=== PATIENT | male | born 1945 | race Hispanic/Latino ===

== ENCOUNTER 2018-03-15 10:07 | Emergency (ER) | payer MEDICARE ==
[2018-03-15 10:10] VITALS: BMI 39.9
--- NOTE | 2018-03-15 10:33 | ED PDOC ---
Arrival/HPI - General Chief Complaint: Abdominal Pain Time Seen by Provider: 03/15/18 10:32 Historian: Patient - History of Present Illness Narrative History of Present Illness (Text): 03/15/18 10:32 Cesar Reynoso is a 72 year old male, whose past medical history includes triple bypass graft, GERD, CAD, asthma, and hypertension, who presents to the Emergency department complaining of left flank pain x 2 days. Patient stated pain is non-radiating, and pain worsen with movement. Patient stated he has a chronic dry cough, but it has been progressively worsen. Patient has been using a new medication for asthma. Patient denies sob, brandt, palpitation, diaphoresis, weakness, syncope, dizziness, fever, urinary symptoms, or abnormal gait. Time/Duration: Other (see hpi) Quality: Aching Context: Home Past Medical History - Provider Review Nursing Documentation Reviewed: Yes - Infectious Disease Hx of Infectious Diseases: None - Cardiac Hx Cardiac Disorders: (Triple bypass) Hx Hypertension: Yes - Pulmonary Hx Asthma: Yes - Neurological Hx Paralysis: No - Endocrine/Metabolic Hx Endocrine Disorders: No - Hematological/Oncological Hx Blood Transfusions: No Hx Blood Transfusion Reaction: No - Musculoskeletal/Rheumatological Hx Arthritis: Yes Hx Falls: No - Gastrointestinal Hx Gastrointestinal Disorders: No - Genitourinary/Gynecological Hx Genitourinary Disorders: No - Psychiatric Hx Emotional Abuse: No Hx Physical Abuse: No Hx Substance Use: No - Surgical History Hx Coronary Artery Bypass Graft: Yes (triple bypass 2009) - Anesthesia Hx Anesthesia: Yes Hx Anesthesia Reactions: No Hx Malignant Hyperthermia: No - Suicidal Assessment Feels Threatened In Home Enviroment: No Family/Social History - Physician Review Nursing Documentation Reviewed: Yes Family/Social History: Other (noncontributory) Smoking Status: Never Smoked Hx Alcohol Use: Yes (drinks on the weekends) Hx Substance Use: No Allergies/Home Meds Allergies/Adverse Reactions: Allergies Penicillins Allergy (Verified 03/15/18 10:51) RASH Home Medications: Home Meds Medication Instructions Recorded Confirmed Atorvastatin Calcium [Lipitor] 40 mg PO DAILY 04/02/15 03/15/18 Hydroxychloroquine Sulfate 400 mg PO QAM 04/02/15 03/15/18 [Plaquenil] Metoprolol Succinate [Toprol Xl] 50 mg PO DAILY 04/02/15 03/15/18 Mometasone/Formoterol [Dulera] 1 mary IH BID 04/02/15 03/15/18 Ranitidine HCl [Zantac 150] 150 mg PO DAILY 04/02/15 03/15/18 Aspirin [Aspirin] 81 mg PO DAILY 04/04/15 03/15/18 Tamsulosin [Flomax] 0.4 mg PO DAILY 05/28/17 03/15/18 Clopidogrel [Plavix] 75 mg PO DAILY 03/15/18 03/15/18 Fluticasone/Umeclidin/Vilanter 1 each IH DAILY 03/15/18 03/15/18 [Trelepamela Ellipta 100-62.5-25] Review of Systems - Review of Systems Constitutional: Normal. absent: Fatigue, Weight Change, Fevers, Night Sweats Eyes: Normal ENT: Normal Respiratory: Cough (chronic dry cough). absent: SOB, Sputum, Wheezing Cardiovascular: Normal. absent: Chest Pain, Palpitations, Edema Gastrointestinal: Abdominal Pain (left flank pain). absent: Nausea, Vomiting Genitourinary Male: Normal. absent: Dysuria, Frequency, Hematuria Musculoskeletal: Back Pain (left lower back pain). absent: Arthralgias, Neck Pain, Joint Swelling Skin: Normal. absent: Rash Neurological: Normal. absent: Headache, Dizziness, Focal Weakness, Gait Changes , Speech Changes Endocrine: Normal Hemo/Lymphatic: Normal Psychiatric: Normal Physical Exam Vital Signs Temp Pulse Resp BP Pulse Ox 03/15/18 10:35 98.6 F 60 19 142/70 100 Temperature: Afebrile Blood Pressure: Normal Pulse: Regular Respiratory Rate: Normal Appearance: Positive for: Well-Appearing, Non-Toxic, Comfortable Pain Distress: None Mental Status: Positive for: Alert and Oriented X 3 - Systems Exam Head: Present: Atraumatic, Normocephalic Pupils: Present: PERRL Extroacular Muscles: Present: EOMI Conjunctiva: Present: Normal Mouth: Present: Moist Mucous Membranes Neck: Present: Normal Range of Motion Respiratory/Chest: Present: Clear to Auscultation, Good Air Exchange, Tender to Palpation ((+) left flank pain is 100 % reproducible on palpation located left posteriorlower rib area. No erythema, rash or ecchymosis.). No: Respiratory Distress, Accessory Muscle Use, Wheezes, Decreased Breath Sounds, Rales, Retracting, Rhonchi Cardiovascular: Present: Regular Rate and Rhythm, Normal S1, S2. No: Murmurs Abdomen: No: Tenderness, Distention, Peritoneal Signs, Rebound, Guarding Back: Present: Normal Inspection, Paraspinal Tenderness (mild left paravertebral tenderness). No: CVA Tenderness, Midline Tenderness Upper Extremity: Present: Normal Inspection, Neurovascularly Intact. No: Cyanosis, Edema Lower Extremity: Present: Normal Inspection, NORMAL PULSES, Normal ROM, Neurovascularly Intact. No: Edema Neurological: Present: GCS=15, CN II-XII Intact, Speech Normal, Motor Func Grossly Intact, Normal Sensory Function, Normal Cerebellar Funct, Gait Normal, Memory Normal Skin: Present: Warm, Dry, Normal Color. No: Rashes Psychiatric: Present: Alert, Oriented x 3, Normal Insight, Normal Concentration Medical Decision Making ED Course and Treatment: 03/15/18 13:29 This 72 yo male with pmh CABG, presents to this ED c/o left lower posterior chest wall pain x 2 days, which worsen with movement, deep inspiration, and palpation and pain improves by remaining still. Patient noted he has a chronic cough. Physical exam was unremarkable, except for tenderness on palpation left flank area over lower lateral ribs. No skin rash. Pain is 100 % reproducible. Labs, cxr, ekg, ct scan was unremarkable. Normal troponin. Lungs CTA b/l. No abdominal tenderness. I told patient that sometimes chronic cough can cause chest wall pain, and chronic cause sometime is caused by GERD. I recommended Carafate, Lidoderm patch for pain, and Tylenol with Codeine. Patient was recommended to avoid driving or operating machinery for at least 12 hours if he takes Tylenol with codeine. I recommended patient to f/u Dr. Morrison tomorrow, and to see GI doctor . 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 To return to emergency if symptoms returns. Re-evaluation Time: 13:35 Reassessment Condition: Re-examined, Improved - Lab Interpretations Lab Results: 03/15/18 11:00 03/15/18 11:00 Lab Results 03/15/18 11:00: Urine Color Yellow, Urine Appearance Clear, Urine pH 6.0, Ur Specific [place] 1.020, Urine Protein Negative, Urine Glucose (UA) Negative, Urine Ketones Negative, Urine Blood Negative, Urine Nitrate Negative, Urine Bilirubin Negative, Urine Urobilinogen 0.2, Ur Leukocyte Esterase Negative 03/15/18 11:00: Sodium 141, Potassium 3.8, Chloride 107, Carbon Dioxide 23, Anion Gap 15, BUN 18, Creatinine 0.9, Est GFR ( Amer) > 60, Est GFR (Non- Af Amer) > 60, Random Glucose 120 H, Calcium 9.6, Magnesium 1.7, Total Bilirubin 1.0, AST 27, ALT 34, Alkaline Phosphatase 67, Lactate Dehydrogenase 444, Total Creatine Kinase 104, Troponin I < 0.01 D, Total Protein 6.6, Albumin 3.8, Globulin 2.8, Albumin/Globulin Ratio 1.4, Lipase 217 03/15/18 11:00: WBC 7.5, RBC 4.47, Hgb 14.1, Hct 40.5 L, MCV 90.6 D, MCH 31.5, MCHC 34.8, RDW 13.3, Plt Count 198, MPV 9.8, Gran % 72.3 H, Lymph % (Auto) 15.5 L, [place] % (Auto) 6.5 H, Eos % (Auto) 5.3 H, Baso % (Auto) 0.4, Gran # 5.41, Lymph # (Auto) 1.2, [place] # (Auto) 0.5, Eos # (Auto) 0.4, Baso # (Auto) 0.03 I have reviewed the lab results: Yes Interpretation: No clinic. lab abnormalty - RAD Interpretation Narrative RAD Interpretations (Text): 03/15/18 12:23 Date of service: LUNGS: No active pulmonary disease. PLEURA: No significant pleural effusion identified, no pneumothorax apparent. CARDIOVASCULAR: Status post CABG. Normal heart size. No congestive change. OSSEOUS STRUCTURES: No significant abnormalities. VISUALIZED UPPER ABDOMEN: Normal. OTHER FINDINGS: None. IMPRESSION: No active disease. 03/15/18 12:24 Date of service: 03/15/2018 PROCEDURE: CT Abdomen and Pelvis without intravenous contrast FINDINGS: LOWER THORAX: Unremarkable. LIVER: Unremarkable. No gross lesion or ductal dilatation. GALLBLADDER AND BILE DUCTS: Cholelithiasis. No mural thickening or pericholecystic fluid. PANCREAS: Unremarkable. No gross lesion or ductal dilatation. SPLEEN: Unremarkable. ADRENALS: Unremarkable. No mass. KIDNEYS AND URETERS: Multiple small bilateral nonobstructing renal calculi. Largest right kidney in upper pole 4 mm. Largest in left kidney interpolar, 5 mm. There has been some increase in size and number of these calcifications when compared to the prior examination. There is no renal mass. There is no hydronephrosis. VASCULATURE: Unremarkable. No aortic aneurysm. BOWEL: Unremarkable. No obstruction. No gross mural thickening. APPENDIX: Unremarkable. Normal appendix. PERITONEUM: Unremarkable. No free fluid. No free air. LYMPH NODES: Unremarkable. No enlarged lymph nodes. BLADDER: Unremarkable. REPRODUCTIVE: Normal prostate BONES: Grade 1 anterolisthesis at L5-S1 with bilateral L5 spondylolysis. No evidence of vertebral fracture. OTHER FINDINGS: None. IMPRESSION: Bilateral small nonobstructing renal calculi. No evidence of urinary tract obstruction or ureteral calculus. Cholelithiasis without evidence of cholecystitis. Anterolisthesis and spondylolysis at L5-S1. Radiology Orders: 03/15/18 11:06 CHEST PORTABLE [RAD] Stat 03/15/18 11:10 ABDOMEN & PELVIS [ABD & PELVIS W/O PO OR IV CONT] [CT] Stat - EKG Interpretation Interpreted by ED Physician: Yes (Sinus bradycardia @[address] changes) Type: 12 lead EKG - Medication Orders Current Medication Orders: Discontinued Medications Morphine Sulfate (Morphine) 2 mg IVP STAT STA Stop: 03/15/18 11:25 Last Admin: 03/15/18 11:32 Dose: 2 mg MAR Pain Assessment Document 03/15/18 11:32 GMD (Rec: 03/15/18 11:32 GMD [id number]) Pain Reassessment Is this a pain reassessment? No Presence of Pain Presence of Pain Yes IVP Administration Document 03/15/18 11:32 GMD (Rec: 03/15/18 11:32 GMD [id number]) Charges for Administration # of IVP Administrations 1 Ondansetron HCl (Zofran Inj) 4 mg IVP STAT STA Stop: 03/15/18 11:25 Last Admin: 03/15/18 11:32 Dose: 4 mg IVP Administration Document 03/15/18 11:32 GMD (Rec: 03/15/18 11:32 GMD [id number]) Charges for Administration # of IVP Administrations 1 Disposition/Present on Arrival - Present on Arrival Any Indicators Present on Arrival: No History of DVT/PE: No History of Uncontrolled Diabetes: No Urinary Catheter: No History of Decub. Ulcer: No History Surgical Site Infection Following: None - Disposition Have Diagnosis and Disposition been Completed?: Yes Diagnosis: Chest wall pain, History of chronic cough Disposition: HOME/ ROUTINE Disposition Time: 13:37 Patient Plan: Discharge Condition: GOOD Discharge Instructions (ExitCare): Chest Pain That Is Not Caused by the Heart ( [place]) Additional Instructions: Call Dr. Morrison for follow up visit in 1-2 days. Take medication as instructed. Return to emergency if pain worsen, or if new symptoms arise. Do not drive or operate machinery for at least 12 hours if you take Tylenol with codeine. Take OTC Zantac in the morning. Prescriptions: Acetaminophen with Codeine [Tylenol with Codeine #3 Tablet] 1 each PO Q6H PRN # 10 tablet PRN Reason: Pain, Severe (8-10) Lidocaine 5% [Lidoderm] 1 each TP DAILY PRN #30 patch PRN Reason: Pain, Severe (8-10) Sucralfate [Carafate] 1 gm PO DAILY #30 tab Referrals: Torsten Morrison MD [Primary Care Provider] - Follow up with primary Forms: [employer] (Macedonian)
[2018-03-15 11:13] LABS: BASO # 0.03 K/mm3 (0.0-2.0); BASO % 0.4 % (0.0-3.0); EOS # 0.4 (0.0-0.7); EOS % 5.3 % (1.5-5.0); GRAN # 5.41 (1.4-6.5); GRAN % 72.3 % (50.0-68.0); HEMOGLOBIN 14.1 g/dL (14.0-18.0); LYMPH # 1.2 (1.2-3.4); LYMPH % 15.5 % (22.0-35.0); MEAN CELL VOLUME 90.6 fl (80.0-105.0); MEAN CORPUSCULAR HEMOGLOBIN 31.5 pg (25.0-35.0); MEAN CORPUSCULAR HGB CONC 34.8 g/dl (31.0-37.0); MEAN PLATELET VOLUME 9.8 fl (7.0-11.0); MONO # 0.5 (0.1-0.6); MONO % 6.5 % (1.0-6.0); RBC 4.47 10^6/uL (3.5-6.1); RED CELL DISTRIBUTION WIDTH 13.3 % (11.5-14.5); URINE BILIRUBIN NEGATIVE (NEGATIVE); URINE BLOOD NEGATIVE (NEGATIVE); URINE GLUCOSE (UA) NEGATIVE (NEGATIVE); URINE LEUKOCYTE ESTERASE NEGATIVE Leu/uL (NEGATIVE); URINE PROTEIN NEGATIVE mg/dL (<30 mg/dL); URINE UROBILINOGEN 0.2 E.U./dL (<1 E.U./dL); WHITE BLOOD COUNT 7.5 10^3/ul (4.5-11.0)
[2018-03-15 11:19] LABS: URINE APPEARANCE CLEAR (CLEAR); URINE COLOR YELLOW (YELLOW)
[2018-03-15 11:23] LABS: ALB/GLOB RATIO 1.4 (1.1-1.8); ALBUMIN 3.8 g/dL (3.0-4.8); ALT/SGPT 34 U/L (7-56); AST/SGOT 27 U/L (17-59); BLOOD UREA NITROGEN 18 mg/dL (7-21); CALCIUM 9.6 mg/dL (8.4-10.5); GFR AFRICAN-AMERICAN > 60; GFR NON-AFRICAN AMERICAN > 60; LIPASE 217 U/L (23-300)
[2018-03-15] MEDS ORDERED: Morphine 2 mg/ml ISec IVP STA (11:24)
--- NOTE | 2018-03-15 11:32 | RAD ---
Date of service: 03/15/2018 HISTORY: left flank pain COMPARISON: 05/29/2017 FINDINGS: LUNGS: No active pulmonary disease. PLEURA: No significant pleural effusion identified, no pneumothorax apparent. CARDIOVASCULAR: Status post CABG. Normal heart size. No congestive change. OSSEOUS STRUCTURES: No significant abnormalities. VISUALIZED UPPER ABDOMEN: Normal. OTHER FINDINGS: None. IMPRESSION: No active disease.
[2018-03-15 11:34] LABS: TROPONIN I < 0.01 ng/mL
--- NOTE | 2018-03-15 12:05 | CT ---
Date of service: 03/15/2018 PROCEDURE: CT Abdomen and Pelvis without intravenous contrast HISTORY: left flank pain COMPARISON: 11/05/2015 TECHNIQUE: Without contrast.. Contrast dose: 0 Radiation dose: Total exam DLP = 1442.05 mGy-cm. This CT exam was performed using one or more of the following dose reduction techniques: Automated exposure control, adjustment of the mA and/or kV according to patient size, and/or use of iterative reconstruction technique. FINDINGS: LOWER THORAX: Unremarkable. LIVER: Unremarkable. No gross lesion or ductal dilatation. GALLBLADDER AND BILE DUCTS: Cholelithiasis. No mural thickening or pericholecystic fluid. PANCREAS: Unremarkable. No gross lesion or ductal dilatation. SPLEEN: Unremarkable. ADRENALS: Unremarkable. No mass. KIDNEYS AND URETERS: Multiple small bilateral nonobstructing renal calculi. Largest right kidney in upper pole 4 mm. Largest in left kidney interpolar, 5 mm. There has been some increase in size and number of these calcifications when compared to the prior examination. There is no renal mass. There is no hydronephrosis. VASCULATURE: Unremarkable. No aortic aneurysm. BOWEL: Unremarkable. No obstruction. No gross mural thickening. APPENDIX: Unremarkable. Normal appendix. PERITONEUM: Unremarkable. No free fluid. No free air. LYMPH NODES: Unremarkable. No enlarged lymph nodes. BLADDER: Unremarkable. REPRODUCTIVE: Normal prostate BONES: Grade 1 anterolisthesis at L5-S1 with bilateral L5 spondylolysis. No evidence of vertebral fracture. OTHER FINDINGS: None. IMPRESSION: Bilateral small nonobstructing renal calculi. No evidence of urinary tract obstruction or ureteral calculus. Cholelithiasis without evidence of cholecystitis. Anterolisthesis and spondylolysis at L5-S1.
[2018-03-15 13:41] VITALS: BP 127/82; PULSE 54; RESP 18; O2SAT 98
[2018-03-15 13:52] VITALS: TEMP 98.2
--- NOTE | 2018-03-15 21:02 | CARD ---
APPROVED REPORT Date of service: 03/15/2018 EKG Measurement Heart [id number] CT 150P17 [id number] <Conclusion> Sinus bradycardia Inferior infarct, age undetermined Abnormal ECG
== END 2018-03-15 13:52 | disposition home or self-care (01) ==
LOC: ED 10:07
DX: R07.89 Other chest pain (principal); R05 Cough; I25.10 Atherosclerotic heart disease of native coronary artery without angina pectoris; I10 Essential (primary) hypertension; J45.909 Unspecified asthma, uncomplicated; K21.9 Gastro-esophageal reflux disease without esophagitis; Z95.1 Presence of aortocoronary bypass graft
CPT/HCPCS: 71045; 74176; 80053; 81003; 82550; 83615; 83690; 83735; 84484; 85025; 87086; 93005; 96374; 96375; 99285; J2270; J2405